=== PATIENT | female | born 1960 | race Caucasian/White ===

== ENCOUNTER → 2016-12-24 | Outpatient (CLI) | payer MEDICARE, OTHER ==
[~2016-12-24] MED LIST: ACCU-CHEK1 COMB.PKG; ACETAMINOPHEN GT; ACETAMINOPHEN325 MG DOB; ACETYLCYSTEINE 10% NEB; ALBUTEROL0.83 MG/ML IH; ALPRAZOLAM; CALCIUM 500 + D1 TAB GT; CARDIZEM30 M1 DOB; CARMEX TOP; CHLORHEX GLU; CLARITIN10 M2 DOB; CLEOCIN; DIAPER RASH TOP; DUONEB 2.5-0.5 M3 ML; FIBERSTAT GT; FLEETS ENEMA RC; HUMULIN R100 U/ML SUBQ; IPRATROPIUM0.2 MG/ML NEB; LEVAQUIN; LOPRESSOR GT; MAGNESIUM400 MG PO; METOPROLOL TART25 MG PO; MIRALAX17 GM DOB; MULTI VITAMIN1 EACH PO; MULTI-VITAMIN1 TAB; NEOSPORIN OINTM15 GM TOP; NOVOLIN R100 U/ML SUBQ; OCEAN45 ML; OYSTER SHELL 51 EACH PO; PATIENT'S PHARMACY; PEDIALYTE GT; PHENERGAN PR; RISAMINE OINTM113 GM TP; ROBITUSSIN-COU237 ML DOB; ROCEPHIN IV; SALINE NASAL14.1 GM TP; SENNA; SENNA S TABLET1 TAB GT; SODIUM CHLORIDE 0.9% NEB; TAMIFLU75 M1 DOB; THERA PLUS GT; THERA-GEL251 ML TP; TRIPLE ANTIBIO1 EACH TP; VITAMIN D GT; VITAMIN D1000 UNI2 DOB; ZITHROMAX IV; [UNRECOGNIZED DRUG - CODE] TOP; [UNRECOGNIZED DRUG - MIXTURE] GT; [UNRECOGNIZED DRUG - OTHER] TOP; [UNRECOGNIZED DRUG - OTHER] TOP; [UNRECOGNIZED DRUG - OTHER] TOP; [UNRECOGNIZED DRUG - SUPPLY] TOP
== END | disposition home or self-care (01) ==
LOC: CSSDAY 10:10
DX: M81.8 Other osteoporosis without current pathological fracture (principal)
CPT/HCPCS: 96372; J0897

== ENCOUNTER → 2017-01-25 | Outpatient (CLI) | payer MEDICARE, OTHER ==
--- NOTE | ~2017-01-25 | US17 ---
[facility] A Service of [facility] & [facility] RADIOLOGY TEXT RESULTS PATIENT: SCOTTY JOSÉ I LOCATION: [facility] : 60 UNIT #: [id number] AGE: [address]: Hari Olmos MD SEX: F ORDER DR: [id number] [facility] [address] [place], [place] [address] [id number] O MR#: [id number] Acc #: [id number] NAME: SCOTTY JOSÉ : 1960 SEX: F STUDY DATE/TIME: 01/25/2017 13:42 UNIT: [facility] ROOM: STUDY DESCRIPTION: US Breast Bilateral Attending Physician: Hari Olmos Sr., M.D. Referring Physician: Hari Olmos Sr., M.D. Ordering Physician: Hari Olmos Sr., M.D. Primary Care Physician: Hari Olmos Sr., M.D. MEDICAL IMAGING REPORT This report is preliminary unless electronic signature is present EXAM Bilateral screening breast ultrasound. DATE: 01/25/2017 HISTORY 56-year-old female. [place] resident. Unable to cooperate or tolerate traditional diagnostic mammogram. Annual screening ultrasound requested. COMPARISON Bilateral screening ultrasound 02/17/2016, 08/05/2015, 10/25/2014. Left breast unilateral diagnostic ultrasound 11/04/2014. FINDINGS Sample images were obtained of each breast in the retroareolar regions and in a clock face fashion from the 12 o'clock, 3 o'clock, 6 o'clock and 9 o'clock axis. Normal fibroglandular tissue is demonstrated bilaterally. No cystic or solid nodule, architectural distortion or microcalcification is seen. No mass lesion is seen in the 3 o'clock axis left breast, where, apparently previous nodule has undergone surgical excision. IMPRESSION BIRADS 1. Negative screening breast ultrasound. Screening breast ultrasound can be performed in 1 year, if deemed clinically appropriate for this patient. Dictated by... Liberty Miller M.D. THIS IS AN ELECTRONICALLY VERIFIED REPORT Liberty Miller M.D. at 01/29/2017 8:56 AM [facility] A Service of [facility] & [facility] RADIOLOGY TEXT RESULTS PATIENT: SCOTTY JOSÉ I LOCATION: [facility] #: [id number] : 60 UNIT #: [id number] AGE: [address]: Hari Olmos MD SEX: F ORDER DR: TALI/madeline TD: 01/28/2017 23:48 JOB #: [id number] MEDICAL IMAGING REPORT Page 1 of 1 COPY
== END | disposition home or self-care (01) ==
LOC: CGUS 13:23
DX: Z12.39 Encounter for other screening for malignant neoplasm of breast (principal)
CPT/HCPCS: 76641